=== PATIENT | female | born 1985 | race African-American/Black ===

== ENCOUNTER 2017-12-21 15:46 | Emergency (ER) | payer OTHER ==
[~2017-12-21] VITALS: Ht 154.9 cm; Wt 75.0 kg
[~2017-12-21 15:46] MED LIST: MACR100C PO; METR-1 PO; ZOFR4TAB3 SL
[2017-12-21 15:47] VITALS: BP 130/84; PULSE 73; RESP 14; TEMP 98.2; O2SAT 100
--- NOTE | 2017-12-21 16:23 | PD ---
HPI Chief Complaint: Skin Problem Time Seen by Provider: 16:12 Travel History International Travel<30 days: No Contact w/Intl Traveler<30days: No Traveled to known affect area: No History of Present Illness HPI 32-year-old Afro-[place] female presents the emergency Department with draining abscess with localized tenderness and erythema 4 days. Patient denies fever, chills, but states it has been draining, she has been "squeezing it", for the last several days. Patient has no previous history of MRSA in the past. Patient states the erythema has improved in the last 24 hours. She still feels it may need to be opened more to get it completely drained. Tenderness is about a 7 out of 10. She has no known drug allergies. PFSH Past Medical History Hx Anticoagulant Therapy: No Cardiovascular Problems: No Chemotherapy: No Cerebrovascular Accident: No Diabetes: No Diminished Hearing: No Respiratory: No Immunizations Current: No ?: Not : 5 Para: 3 Miscarriage: 1 : 0 Past Surgical History Hysterectomy: No Social History Alcohol Use: No Tobacco Use: No Substance Use: No Allergies-Medications (Allergen,Severity, Reaction): Coded Allergies: No Known Allergies (Verified Adverse Reaction, Unknown, 12/21/17) Reported Meds & Prescriptions Reported Meds & Active Scripts Active Zofran ODT (Ondansetron HCl) 4 Mg Tab 4 Mg SL Q6H PRN FOR NAUSEA/VOMITING Flagyl (Metronidazole) 500 Mg Tab 500 Mg PO BID Macrobid (Nitrofurantoin Macrocrystals) 100 Mg Cap 100 Mg PO BID 10 Days Review of Systems Except as stated in HPI: all other systems reviewed are Neg General / Constitutional: No: Fever, Chills Eyes: No: Visual changes HENT: No: Headaches Cardiovascular: No: Chest Pain or Discomfort Respiratory: No: Shortness of Breath Gastrointestinal: No: Abdominal Pain Genitourinary: No: Dysuria Musculoskeletal: No: Pain Skin: Positive Lesions, No Rash Neurologic: No: Weakness Psychiatric: No: Depression Endocrine: No: Polydipsia Hematologic/Lymphatic: No: Easy Bruising Physical Exam Narrative GENERAL: Moderately obese female in no acute distress per SKIN: Warm and dry. Patient has indurated area to the right anterior lower abdomen with centralized draining opening from previous abscesses. There does not appear to be palpable drainable abscess currently, only induration with erythema and tenderness. Culture is obtained. HEAD: Atraumatic. Normocephalic. EYES: Pupils equal and round. No scleral icterus. No injection or drainage. ENT: No nasal bleeding or discharge. Mucous membranes pink and moist. Airways patent. Pharynx is normal. NECK: Trachea midline. Supple nontender. CARDIOVASCULAR: Regular rate and rhythm. RESPIRATORY: No accessory muscle use. Clear to auscultation. Breath sounds equal bilaterally. GASTROINTESTINAL: Abdomen soft, non-tender, nondistended. Hepatic and splenic margins not palpable. MUSCULOSKELETAL: Extremities without clubbing, cyanosis, or edema. No obvious deformities. NEUROLOGICAL: Awake and alert. No obvious cranial nerve deficits. Motor grossly within normal limits. Five out of 5 muscle strength in the arms and legs. Normal speech. PSYCHIATRIC: Appropriate mood and affect; insight and judgment normal. Data Data Last Documented VS Vital Signs Date Time Temp Pulse Resp B/P (MAP) Pulse Ox O2 Delivery O2 Flow Rate FiO2 12/21/17 15:47 98.2 73 14 130/84 (99) 100 MDM Medical Decision Making Medical Screen Exam Complete: Yes Emergency Medical Condition: Yes Differential Diagnosis Cellulitis. Abscess. MRSA. Narrative Course Abscess appears to be draining well. Culture is obtained and sent to the lab. Patient is given Bactrim DS twice a day 7 days. Patient also given Bactroban to be placed on after washing it twice daily. Patient take ibuprofen and Tylenol as needed as well Recommend warm compresses to the area frequently and follow if not improving in the next week. Work note is given for today. Diagnosis Primary Impression: Cellulitis of abdominal wall Patient Instructions: Abscess (ED), General Instructions, MRSA (Methicillin- Resistant Staphylococcus Aureus) (ED) Departure Forms: Work Release Enter return to work date: Dec 22, 2017 Additional Instructions: Abscess appears to be draining well. Culture is obtained and sent to the lab. Patient is given Bactrim DS twice a day 7 days. Patient also given Bactroban to be placed on after washing it twice daily. Patient take ibuprofen and Tylenol as needed as well Recommend warm compresses to the area frequently and follow if not improving in the next week. Work note is given for today. Disposition: 01 DISCHARGE HOME Condition: Stable Bijan Zaragoza Dec 21, 2017 16:23
[2017-12-21] MEDS ORDERED: BACT800T5 PO (16:24)
[2017-12-21] MEDS ORDERED: MUPI2%T TOPICAL (16:24)
== END 2017-12-21 16:41 | disposition home or self-care (01) ==
LOC: NEPK 15:46
DX: L03.311 Cellulitis of abdominal wall (principal); B95.62 Methicillin resistant Staphylococcus aureus infection as the cause of diseases classified elsewhere; Z79.899 Other long term (current) drug therapy
CPT/HCPCS: 86403; 87070; 87186; 87205; 99283